=== PATIENT | male | born 1945 | race Two or more races ===

== ENCOUNTER 2017-09-16 08:20 | Outpatient (CLI) | payer OTHER ==
[~2017-09-16] VITALS: Ht 172.7 cm; Wt 79.4 kg
[~2017-09-16 08:20] MED LIST: ATIVAN2 MG PO; CELEBREX50 MG PO; COLCHICINE; DEPAKOTE ER250 MG PO; NABUMETONE750 MG PO; ULTRACET PO; VYTORIN 10-40 M1 TAB PO; [UNRECOGNIZED DRUG - OTHER]
== END 2017-09-16 08:45 | disposition home or self-care (01) ==
LOC: OFIC 805 08:20
DX: H92.03 Otalgia, bilateral (principal); H91.8X3 Other specified hearing loss, bilateral

== ENCOUNTER 2017-10-10 06:39 | Outpatient (CLI) | payer OTHER | END 2017-10-10 06:46 | disposition home or self-care (01) | LOC: LAB 06:39 → RAD 06:39 | DX: I10 Essential (primary) hypertension (principal); I20.1 Angina pectoris with documented spasm ==

== ENCOUNTER 2018-05-22 10:26 | Outpatient (CLI) | payer OTHER | END 2018-05-22 11:19 | disposition home or self-care (01) | LOC: NUCLEAR 10:26 | DX: I20.1 Angina pectoris with documented spasm (principal) | CPT/HCPCS: 78452; 93017; A9500; J0153 ==

== ENCOUNTER 2019-01-13 05:50 | Emergency (ER) | payer OTHER ==
[~2019-01-13] VITALS: Ht 175.3 cm; Wt 90.7 kg
[2019-01-13] MEDS ORDERED: GRALISE600 MG (06:02)
[2019-01-13] MEDS ORDERED: PLAVIX75 MG (06:03)
== END 2019-01-13 17:45 | disposition home or self-care (01) ==
LOC: ER 05:50
DX: J09.X2 Influenza due to identified novel influenza A virus with other respiratory manifestations (principal); R53.1 Weakness